=== PATIENT | female | born 1955 | race Caucasian/White ===

== ENCOUNTER 2016-08-07 17:16 | Emergency (ER) | payer MEDICARE, OTHER ==
[~2016-08-07 17:16] MED LIST: ALLEGRA180 PO; ATARAX50B PO; CENTRUM TAB1 TAB PO; DETROL2 PO; EPIPEN0.3 IM; MAGCIT PO; MIRALAXPKT PO; TEG200 PO; TREX PO; VALTREX1 GM PO; VYTORIN 10/20 T1 TAB PO
== END 2016-08-07 23:45 | disposition home or self-care (01) ==
LOC: ER 17:16
PROC: 0HQ0XZZ Repair Scalp Skin, External Approach (ICD-10-PCS; principal; 2016-08-07)
DX: S09.90XA Unspecified injury of head, initial encounter (principal); S01.01XA Laceration without foreign body of scalp, initial encounter; Z88.0 Allergy status to penicillin; Z91.040 Latex allergy status; Z88.8 Allergy status to other drugs, medicaments and biological substances; Z79.899 Other long term (current) drug therapy; W22.8XXA Striking against or struck by other objects, initial encounter
CPT/HCPCS: 70450; 90471; 90714; 99284; A9270-GY